=== PATIENT | female | born 1955 | race Two or more races ===

== ENCOUNTER 2017-02-20 15:17 | Emergency (ER) | payer OTHER ==
[~2017-02-20] VITALS: Ht 162.6 cm; Wt 89.4 kg
--- NOTE | 2017-02-20 15:27 | NUR ---
PRESENTS SELF TO ED FOR RIGHT SIDED CHEST PAIN X 1 WEEK,, 02/12, NON RADIATING. PATIENT APPEARS IN NO APPRENT DISTRESS, RESPIRATION EVEN AND UNLABORED. SKIN IS WARM TO TOUCH AND NON DIAPHORETIC. AFEBRILE. GOWNED AND PLACED PT ON TELE MONITOR, PENDING MD LORENZ
--- NOTE | 2017-02-20 15:35 | NUR ---
MD DELAROSA AT BEDSIDE
--- NOTE | 2017-02-20 15:54 | NUR ---
IV ACCESSED TO LEFT WRIST,, BLOOD SAMPLE SENT TO LAB
[2017-02-20 15:55] LABS: BASOPHILS # (AUTO) 0.1 /CMM (0.0-0.2); BASOPHILS % (AUTO) 1.2 % (0.0-2.0); EOSINOPHILS # (AUTO) 0.2 /CMM (0.0-0.7); HEMATOCRIT 44 % (33-45); HEMOGLOBIN 14.2 g/dL (11.5-14.8); LYMPHOCYTES # (AUTO) 2.7 /CMM (0.8-4.8); LYMPHOCYTES % (AUTO) 30.1 % (20.0-44.0); MEAN CORPUSCULAR HEMOGLOBIN 24 PG (26.0-33.0); MEAN CORPUSCULAR HGB CONC 32 g/dl (31.0-36.0); MEAN CORPUSCULAR VOLUME 75 fL (82-100); MONOCYTES # (AUTO) 0.9 /CMM (0.1-1.30); MONOCYTES % (AUTO) 9.8 % (2.0-12.0); NEUTROPHILS # (AUTO) 5.1 /CMM (1.8-8.9); NEUTROPHILS % (AUTO) 56.9 % (43.0-81.0); PLATELET COUNT (AUTO) 191 /CMM (150-450); RDW COEFFICIENT OF VARIATION 13.5 (11.5-15.0); RED BLOOD CELL COUNT(AUTO) 5.89 MIL/uL (4.0-5.2)
[2017-02-20] MEDS ORDERED: MORPHINE SULFATE INJ 2 MG/ML DISP.SYRIN IV ONE (16:00)
[2017-02-20] MEDS ORDERED: ASPIRIN 81 MG TAB.CHEW PO ONE (16:00)
[2017-02-20] MEDS ORDERED: MORPHINE SULFATE INJ 2 MG/ML DISP.SYRIN ONE (16:14)
[2017-02-20] MEDS ORDERED: ASPIRIN 81 MG TAB.CHEW ONE (16:14)
[2017-02-20 16:15] LABS: CARBON DIOXIDE 33 mmol/L (21-32); CHLORIDE 108 mmol/L (98-107); GLUCOSE 102 mg/dL (74-106); POTASSIUM 4.4 mmol/L (3.5-5.1); SODIUM SERUM 143 mmol/L (136-145); UREA NITROGEN, BLOOD 17 mg/dL (7-18)
[2017-02-20 16:18] LABS: INR 0.98 (0.87-1.13); PROTHROMBIN TIME 10.5 SECS (9.5-12.7)
[2017-02-20 16:24] LABS: TROPONIN I < 0.017 ng/mL (0.00-0.056)
[2017-02-20 16:31] LABS: ALBUMIN 3.5 g/dL (3.4-5.0); BILIRUBIN,DIRECT 0.1 mg/dL (0.0-0.2); BILIRUBIN,TOTAL 0.5 mg/dL (0.2-1.0); TOTAL PROTEIN, SERUM 7.7 g/dL (6.4-8.2)
[2017-02-20] MEDS ORDERED: IV NS 0.9% 250 ML IV ONE (17:17)
[2017-02-20] MEDS ORDERED: IOHEXOL-300 100 ML VIAL IV ONE (17:18)
--- NOTE | 2017-02-20 18:52 | NUR ---
IV removed. Catheter intact and site benign. Pressure and 4x4 applied to site. No bleeding noted. Patient discharged to home in stable condition. Written and verbal after care instructions given. Patient verbalizes understanding of instruction. ambulatory with a steady gait. instructed pt not to drive. pt accompanied by daughter.
[2017-02-20 18:54] VITALS: BP 132/84
== END 2017-02-20 18:55 | disposition home or self-care (01) ==
LOC: ER 15:19
DX: R07.9 Chest pain, unspecified (principal); E04.1 Nontoxic single thyroid nodule; E78.00 Pure hypercholesterolemia, unspecified; I10 Essential (primary) hypertension; F41.9 Anxiety disorder, unspecified
CPT/HCPCS: 36415; 71010; 71260; 80048; 80076; 84443; 84484 ×2; 85025; 85378; 85730; 93005 ×3; 96374; 99285; A4606; G0480; J2270; J7050; Q9967; Z7610

== ENCOUNTER 2018-01-05 13:03 | Emergency (ER) | payer OTHER ==
[~2018-01-05] VITALS: Ht 162.6 cm; Wt 86.2 kg
--- NOTE | 2018-01-05 13:07 | NUR ---
EPIGASTRIC PAIN RADIATING TO CHEST SINCE 2AM. PLACED ON MONITOR. AWAITING MD ORDER
[2018-01-05] MEDS ORDERED: ASPIRIN 81 MG TAB.CHEW PO ONE (13:30)
[2018-01-05] MEDS ORDERED: IV NS 0.9% 500 ML BAG IV ONE ×2 (13:30→15:30)
[2018-01-05] MEDS ORDERED: TRAZ150T75 PO (13:31)
[2018-01-05] MEDS ORDERED: ATOR10TA PO (13:31)
[2018-01-05] MEDS ORDERED: PROP40TA7 PO (13:31)
[2018-01-05] MEDS ORDERED: ASPI-1152 PO (13:31)
[2018-01-05] MEDS ORDERED: SERT100T12 PO (13:31)
[2018-01-05] MEDS ORDERED: ACET-53 PO (13:31)
[2018-01-05] MEDS ORDERED: LOSA25TA13 PO (13:31)
--- NOTE | 2018-01-05 13:38 | NUR ---
LAC #20 IV ACCESS. BLOOD SAMPLE COLLECTED SENT TO LAB
[2018-01-05] MEDS ORDERED: ASPIRIN 81 MG TAB.CHEW ONE (13:43)
[2018-01-05] MEDS ORDERED: MAG HYDROX/AL HYDROX/SIMETH 30 ML UDC ONE (13:43)
[2018-01-05] MEDS ORDERED: LIDOCAINE VISCOUS 2% UD 15 ML UDC ONE (13:43)
[2018-01-05] MEDS ORDERED: PANTOPRAZOLE 40 MG VIAL ONE (13:43)
[2018-01-05 13:58] LABS: BASOPHILS % (AUTO) 0.3 % (0.0-2.0); EOSINOPHILS % (AUTO) 0.2 % (0.0-6.0); HEMATOCRIT 46 % (33-45); HEMOGLOBIN 15.3 g/dL (11.5-14.8); LYMPHOCYTES # (AUTO) 2.3 /CMM (0.8-4.8); LYMPHOCYTES % (AUTO) 16.4 % (20.0-44.0); MEAN CORPUSCULAR HGB CONC 34 g/dl (31.0-36.0); MEAN CORPUSCULAR VOLUME 73 fL (82-100); MONOCYTES % (AUTO) 7.2 % (2.0-12.0); NEUTROPHILS # (AUTO) 10.7 /CMM (1.8-8.9); NEUTROPHILS % (AUTO) 75.9 % (43.0-81.0); PLATELET COUNT (AUTO) 237 /CMM (150-450); RDW COEFFICIENT OF VARIATION 14.2 (11.5-15.0); RED BLOOD CELL COUNT(AUTO) 6.21 MIL/uL (4.0-5.2); WHITE BLOOD COUNT (AUTO) 14.1 K/uL (4.3-11.0)
[2018-01-05] MEDS ORDERED: PANTOPRAZOLE 40 MG VIAL IV ONE (14:00)
[2018-01-05] MEDS ORDERED: LIDOCAINE VISCOUS 2% UD 15 ML UDC MM ONE (14:00)
[2018-01-05] MEDS ORDERED: MAG HYDROX/AL HYDROX/SIMETH 30 ML UDC PO ONE (14:00)
[2018-01-05] MEDS ORDERED: HYOSCYAMINE SULFATE 0.125 MG TAB.SUBL SL ONE (14:00)
[2018-01-05] MEDS ORDERED: HYOSCYAMINE SULFATE 0.125 MG TAB.SUBL SL PRN (14:00)
[2018-01-05 14:10] LABS: ALANINE AMINOTRANSFERASE 16 U/L (12-78); ALBUMIN 3.7 g/dL (3.4-5.0); ALKALINE PHOSPHATASE 98 U/L (46-116); ASPARTATE AMINOTRANSFERASE 25 U/L (15-37); BILIRUBIN,DIRECT 0.2 mg/dL (0.0-0.2); BILIRUBIN,TOTAL 0.8 mg/dL (0.2-1.0); CALCIUM, SERUM 9.8 mg/dL (8.5-10.1); CARBON DIOXIDE 29 mmol/L (21-32); CHLORIDE 101 mmol/L (98-107); CREATININE 0.9 mg/dL (0.6-1.3); GLUCOSE 128 mg/dL (74-106); POTASSIUM 4.1 mmol/L (3.5-5.1); SODIUM SERUM 138 mmol/L (136-145); TOTAL PROTEIN, SERUM 8.3 g/dL (6.4-8.2); TROPONIN I < 0.017 ng/mL (0.00-0.056); UREA NITROGEN, BLOOD 16 mg/dL (7-18)
--- NOTE | 2018-01-05 16:53 | NUR ---
IV removed. Catheter intact and site benign. Pressure and 4x4 applied to site. No bleeding noted. Patient discharged to home in stable condition. Written and verbal after care instructions given. Patient verbalizes understanding of instruction.
[2018-01-05 16:54] VITALS: BP 138/72
[2018-01-05 18:32] LABS: EOSINOPHILS % (MANUAL) 1 % (0-4); LYMPHOCYTES % (MANUAL) 22 % (16-48); MONOCYTES % (MANUAL) 4 % (0-11.0); NEUTROPHILS % (MANUAL) 73 (42-76)
== END 2018-01-05 16:55 | disposition home or self-care (01) ==
LOC: ER 13:07
DX: R07.89 Other chest pain (principal); K21.9 Gastro-esophageal reflux disease without esophagitis; E86.0 Dehydration; I10 Essential (primary) hypertension; R71.8 Other abnormality of red blood cells; D72.829 Elevated white blood cell count, unspecified; E78.00 Pure hypercholesterolemia, unspecified; F41.9 Anxiety disorder, unspecified
CPT/HCPCS: 36415; 71045-TC; 80048-TC; 80076-TC; 83690-TC; 84484-TC; 85025-TC; A4606; C9113; J7040; Z7610

== ENCOUNTER 2018-07-31 02:45 | Emergency (ER) | payer OTHER ==
[~2018-07-31] VITALS: Ht 170.2 cm; Wt 87.5 kg
[~2018-07-31 02:45] MED LIST: ACET-53 PO; ASPI-1152 PO; ATOR10TA PO; LOSA25TA27 PO; PROP40TA7 PO; SERT100T12 PO; TRAZ150T75 PO
--- NOTE | 2018-07-31 02:55 | NUR ---
PT BIB SON C/O EPIGASTRIC PAIN SINCE 2099. PT ON MONITOR IN BED 3. SON AT BEDSIDE. WILL CONTINUE TO MONITOR.
[2018-07-31 02:59] VITALS: BP 152/79
[2018-07-31] MEDS ORDERED: MAG HYDROX/AL HYDROX/SIMETH 30 ML UDC PO ONE (03:00)
[2018-07-31] MEDS ORDERED: LIDOCAINE VISCOUS 2% UD 15 ML UDC MM ONE (03:00)
[2018-07-31] MEDS ORDERED: MAG HYDROX/AL HYDROX/SIMETH 30 ML UDC ONE (03:02)
[2018-07-31] MEDS ORDERED: LIDOCAINE VISCOUS 2% UD 15 ML UDC ONE (03:02)
== END 2018-07-31 03:47 | disposition home or self-care (01) ==
LOC: ER 02:48
DX: K21.9 Gastro-esophageal reflux disease without esophagitis (principal); I10 Essential (primary) hypertension; E78.00 Pure hypercholesterolemia, unspecified; F41.9 Anxiety disorder, unspecified; Z79.82 Long term (current) use of aspirin
CPT/HCPCS: 93005; 99283; A4606; Z7610

== ENCOUNTER 2020-11-06 15:36 | Inpatient (IN) | payer OTHER, MEDICARE ==
[~2020-11-06] VITALS: Ht 152.4 cm; Wt 90.3 kg
[~2020-11-06 15:36] MED LIST changes: -ACET-53 PO; +ACET-54 PO; -ASPI-1152 PO; +ASPI-1420 PO; +SERT-439 PO; -SERT100T12 PO
--- NOTE | 2020-11-06 15:49 | NUR ---
THE PATIENT IS BIB DAUGHTER C/OEPIGASTRIC PAIN STARTED 4AM. PATIENT ALERT AND ORIENTED X4. RATES PAIN 10/10. IN ROOM AIR AND DENIES SOB. RESPIRATION REGULAR AND UNLABOED. NOTED RED SANDS ON PATIENT`S ABDOMEN AND BACK AND PER PATIENT SHE HAS BEEN PRACTICING "COINING WHICH IS CULTURAL PRACTICE TO MANAGE PAIN." PATIENT IS PROVIDED WITH A WARM BLANKET. WILL CONTINUE TO MONITOR.
[2020-11-06] MEDS ORDERED: PANTOPRAZOLE 40 MG VIAL ONE (16:49)
[2020-11-06] MEDS ORDERED: MAG HYDROX/AL HYDROX/SIMETH 30 ML UDC ONE (16:50)
[2020-11-06] MEDS ORDERED: LIDOCAINE VISCOUS 2% UD 15 ML UDC ONE (16:50)
[2020-11-06] MEDS ORDERED: FAMOTIDINE/PF INJ 20 MG/2 ML VIAL IV ONE ×2 (16:50→17:00)
[2020-11-06] MEDS ORDERED: MAG HYDROX/AL HYDROX/SIMETH 30 ML UDC PO ONE (17:00)
[2020-11-06] MEDS ORDERED: PANTOPRAZOLE 40 MG VIAL IV ONE (17:00)
[2020-11-06] MEDS ORDERED: LIDOCAINE VISCOUS 2% UD 15 ML UDC MM ONE (17:00)
[2020-11-06 17:27] LABS: BASOPHILS # (AUTO) 0.2 /CMM (0.0-0.2); BASOPHILS % (AUTO) 1.5 % (0.0-2.0); EOSINOPHILS % (AUTO) 0.5 % (0.0-6.0); HEMATOCRIT 43 % (33-45); LYMPHOCYTES # (AUTO) 1.4 /CMM (0.8-4.8); LYMPHOCYTES % (AUTO) 10.3 % (20.0-44.0); MEAN CORPUSCULAR HGB CONC 33 g/dl (31.0-36.0); MEAN CORPUSCULAR VOLUME 75 fL (82-100); MONOCYTES # (AUTO) 0.8 /CMM (0.1-1.30); MONOCYTES % (AUTO) 6.1 % (2.0-12.0); NEUTROPHILS # (AUTO) 11.2 /CMM (1.8-8.9); NEUTROPHILS % (AUTO) 81.6 % (43.0-81.0); PLATELET COUNT (AUTO) 208 /CMM (150-450); RED BLOOD CELL COUNT(AUTO) 5.73 MIL/uL (4.0-5.2); WHITE BLOOD COUNT (AUTO) 13.7 K/uL (4.3-11.0)
--- NOTE | 2020-11-06 17:43 | NUR ---
MORPHINE 2 MG IV X1 ORDERED BY DR TRIPATHI. THE ORDER READ BACK, VERIFIED. NOTED AND CARRIED OUT.
[2020-11-06 17:48] LABS: EOSINOPHILS % (MANUAL) 1 % (0-4); LYMPHOCYTES % (MANUAL) 10 % (16-48); MONOCYTES % (MANUAL) 7 % (0-11.0); NEUTROPHILS % (MANUAL) 82 (42-76)
[2020-11-06] MEDS ORDERED: MORPHINE SULFATE INJ 2 MG/ML DISP.SYRIN ONE ×2 (17:50→20:53)
[2020-11-06 17:54] LABS: CALCIUM, SERUM 9.4 mg/dL (8.5-10.1); CARBON DIOXIDE 27 mmol/L (21-32); CHLORIDE 104 mmol/L (98-107); CREATININE 0.8 mg/dL (0.6-1.3); GLUCOSE 112 mg/dL (74-106); SODIUM SERUM 141 mmol/L (136-145); UREA NITROGEN, BLOOD 15 mg/dL (7-18)
[2020-11-06] MEDS ORDERED: MORPHINE SULFATE INJ 2 MG/ML DISP.SYRIN IV ONE ×2 (18:00→21:00)
[2020-11-06 18:01] LABS: ALANINE AMINOTRANSFERASE 25 U/L (12-78); ALBUMIN 3.6 g/dL (3.4-5.0); ALKALINE PHOSPHATASE 83 U/L (46-116); ASPARTATE AMINOTRANSFERASE 40 U/L (15-37); BILIRUBIN,DIRECT 0.2 mg/dL (0.0-0.2); BILIRUBIN,TOTAL 0.6 mg/dL (0.2-1.0); LIPASE 51 U/L (73-393); TOTAL PROTEIN, SERUM 7.7 g/dL (6.4-8.2)
[2020-11-06] MEDS ORDERED: IV NS 0.9% 250 ML IV ONE (18:05)
[2020-11-06] MEDS ORDERED: IOHEXOL-300 100 ML VIAL IV ONE (18:05)
[2020-11-06] MEDS ORDERED: CT SWABBABLE VALVE TRANS SET 1 EA INFUS.SET MC ONE (18:05)
--- NOTE | 2020-11-06 18:42 | NUR ---
PATIENT GETTING ULTRASOUND.
--- NOTE | 2020-11-06 20:45 | NUR ---
PATIENT REPORTS NO MED TAKEN Addendum: 11/06/20 at 2213 by CLARA AT HOME
--- NOTE | 2020-11-06 20:49 | NUR ---
AMBULATED TO THE RESTROOM WITH A STEADY GAIT.
--- NOTE | 2020-11-06 20:52 | NUR ---
CALL FROM LAB. RAPID COVID NEGATIVE.
[2020-11-06] MEDS ORDERED: ONDANSETRON HCL/PF 4 MG/2 ML VIAL ONE (21:02)
[2020-11-06] MEDS ORDERED: ONDANSETRON HCL/PF 4 MG/2 ML VIAL IV ONE (21:30)
--- NOTE | 2020-11-06 21:32 | NUR ---
RECIEVED BED 324-2
--- NOTE | 2020-11-06 21:32 | NUR ---
BED ASSIGNMENT 324-2
--- NOTE | 2020-11-06 21:42 | NUR ---
REPORT GIVEN TO SILVESTRE GUTIERREZ FOR THERESA.
[2020-11-06 22:00] VITALS: BP 138/75
--- NOTE | 2020-11-06 22:00 | NUR ---
MS ADMISSION NOTE RECEIVED REPORT FROM BRENDA CARRENO FROM ER [id number]. PATIENT ADMITTED IN ROOM 324-2. PATIENT A/O X 4. COMPLAINED OF ABDOMINAL PAIN 5/10. SKIN INTACT. PATIENT ORIENTED TO ROOM, UNIT, PRIMARY NURSE, AND ADMINISTRATIVE ANALYST. VITALS SIGNS STABLE UPON ARRIVAL. RFA 20 g INTACT AND PATENT. PATIENT AMBULATORY. SAFETY PRECAUTIONS IN PLACE. CALL LIGHT WITHIN REACH. WILL MONITOR PATIENT CLOSELY.
[2020-11-06] MEDS ORDERED: ONDANSETRON HCL/PF 4 MG/2 ML VIAL IVP PRN (23:00)
[2020-11-06] MEDS ORDERED: IV NS 0.9% 1,000 ML IV PRN (23:00)
[2020-11-06] MEDS ORDERED: Z GUARD REMEDY 2 OZ OINT TP PRN (23:00)
[2020-11-06] MEDS ORDERED: PIPERACILLIN /TAZOBACTAM 3.375 G VIAL IV ONE (23:08)
[2020-11-06] MEDS: PIPERACILLIN /TAZOBACTAM 3.375 G in IV D5W 50 ML IV SCH (23:16)
[2020-11-07] MEDS ORDERED: PIPERACILLIN /TAZOBACTAM 3.375 G in IV D5W 50 ML IV SCH
--- NOTE | 2020-11-07 00:45 | NUR ---
MS RN NOTE MORPHINE 2 MG GIVEN TO PATIENT FOR 8/10 ABDOMINAL PAIN.
[2020-11-07] MEDS: MORPHINE SULFATE INJ 2 MG/ML DISP.SYRIN IV PRN ×3 (00:51→09:25)
[2020-11-07] MEDS ORDERED: PIPERACILLIN /TAZOBACTAM 3.375 G VIAL IV ONE (05:28)
[2020-11-07] MEDS: PIPERACILLIN /TAZOBACTAM 3.375 G in IV D5W 50 ML IV SCH (05:34)
--- NOTE | 2020-11-07 05:49 | NUR ---
MS RN NOTE MORPHINE 2 MG IV GIVEN TO PATIENT FOR HER ABDOMINAL PAIN.
[2020-11-07 06:08] LABS: BASOPHILS # (AUTO) 0.1 /CMM (0.0-0.2); BASOPHILS % (AUTO) 0.4 % (0.0-2.0); EOSINOPHILS % (AUTO) 0.1 % (0.0-6.0); HEMATOCRIT 44 % (33-45); LYMPHOCYTES # (AUTO) 1.2 /CMM (0.8-4.8); LYMPHOCYTES % (AUTO) 7.1 % (20.0-44.0); MEAN CORPUSCULAR HGB CONC 32 g/dl (31.0-36.0); MEAN CORPUSCULAR VOLUME 76 fL (82-100); MONOCYTES # (AUTO) 1.8 /CMM (0.1-1.30); MONOCYTES % (AUTO) 10.9 % (2.0-12.0); NEUTROPHILS # (AUTO) 13.6 /CMM (1.8-8.9); NEUTROPHILS % (AUTO) 81.5 % (43.0-81.0); PLATELET COUNT (AUTO) 201 /CMM (150-450); RED BLOOD CELL COUNT(AUTO) 5.73 MIL/uL (4.0-5.2); WHITE BLOOD COUNT (AUTO) 16.7 K/uL (4.3-11.0)
[2020-11-07 06:33] LABS: THYROID STIMULATING HORMONE 0.246 uIU/mL (0.358-3.74)
[2020-11-07 06:38] LABS: ALBUMIN 3.3 g/dL (3.4-5.0); BILIRUBIN,TOTAL 1.1 mg/dL (0.2-1.0); CALCIUM, SERUM 8.5 mg/dL (8.5-10.1); CREATININE 0.8 mg/dL (0.6-1.3); MAGNESIUM 1.6 mg/dL (1.8-2.4); PHOSPHORUS 2.9 mg/dL (2.5-4.9); POTASSIUM 3.9 mmol/L (3.5-5.1); TOTAL PROTEIN, SERUM 7.7 g/dL (6.4-8.2)
--- NOTE | 2020-11-07 07:00 | NUR ---
MS RN CLOSING NOTE PATIENT IN BED RESTING, EASILY AROUSABLE. PATIENT STABLE AT THIS TIME. NO S/S OF ANY DISTRESS AT THIS TIME. PAIN MANAGED DURING THE SHIFT. ATB THERAPY STILL INFUSING. IV SITE INTACT AND PATENT. ALL NEEDS MET AND ATTENDED. SAFETY PRECAUTIONS MAINTAINED. WILL ENDORSE TO DAY SHIFT NURSE FOR THERESA.
--- NOTE | 2020-11-07 07:27 | NUR ---
MS RN OPENING NOTES: RECEIVED PATIENT LYING IN BED, AWAKE. A/O X 4. NO PAIN OR RESPIRATORY DISTRESS NOTED. BREATHING IS EVEN AND NON-LABORED. RIGHT FOREARM IV #20 INTACT AND PATENT - RUNNING NS @ 75ML/HR. PATIENT AMBULATORY. SAFETY PRECAUTIONS IN PLACE. CALL LIGHT WITHIN REACH. WILL CONTINUE TO MONITOR.
[2020-11-07 08:00] VITALS: BP 143/74
[2020-11-07] MEDS: ASPIRIN EC 81 MG TABLET.DR PO SCH (08:17)
[2020-11-07] MEDS: SERTRALINE HCL 50 MG TABLET PO SCH (08:17)
[2020-11-07] MEDS: PANTOPRAZOLE 40 MG VIAL IV SCH (08:18)
[2020-11-07] MEDS: ENOXAPARIN SODIUM 40 MG/0.4 ML DISP.SYRIN SQ SCH (08:21)
[2020-11-07] MEDS: PROPRANOLOL HCL 40 MG TABLET PO SCH ×2 (08:25→21:00)
[2020-11-07] MEDS: LOSARTAN POTASSIUM 25 MG TABLET PO SCH (08:25)
--- NOTE | 2020-11-07 08:39 | NUR ---
MS RN NOTE NOTED RED SANDS ON PATIENT'S ABDOMEN - PATIENT PRACTICES CULTURAL TRADITION OF COINING. COINING IS DONE WITH THE INTENTION OF RIDDING THE BODY OF "NEGATIVE ENERGY". IT IS DONE BY USING A HARD OBJECT WITH A SMOOTH EDGE (LIKE A COIN) AND RUBBING IT DOWN THE SKIN LINEARLY UNTIL A BRUISE APPEARS.
[2020-11-07] MEDS: Magnesium 1GM/D5W 100ML PREMIX 100 ML IV SCH ×2 (11:09→12:12)
[2020-11-07] MEDS: PIPERACILLIN /TAZOBACTAM 3.375 G in IV D5W 100 ML IV SCH ×2 (13:23→21:03)
[2020-11-07 16:00] VITALS: BP 122/71
[2020-11-07] MEDS ORDERED: PROCHLORPERAZINE EDISYLATE 10 MG/2 ML VIAL IVP PRN (16:00)
--- NOTE | 2020-11-07 18:21 | NUR ---
MS RN CLOSING NOTES: PATIENT IS LYING IN BED, RESTING AT THIS TIME. NO PAIN OR RESPIRATORY DISTRESS NOTED. BREATHING IS EVEN AND NON-LABORED. RIGHT FOREARM IV #20 INTACT AND PATENT - RUNNING NS @ 100ML/HR. PATIENT HAS BEEN NAUSEOUS OFF AND ON THROUGHOUT SHIFT - COMPAZINE 10MG ORDERED ([facility] FROM [facility]) IVP Q6 PRN. GIVEN @ 1637. SAFETY PRECAUTIONS IN PLACE. CALL LIGHT WITHIN REACH. WILL ENDORSE TO SQUEEGEE FINISHER NURSE FOR THERESA.
--- NOTE | 2020-11-07 19:30 | NUR ---
MS RN OPENING NOTE PATIENT RESTING IN BED, AROUSED EASILY, A/O X4. PATIENT ABLE TO MAKE NEEDS KNOWN. PATIENT ABLE TO AMBULATE/ BRP. NO S/S OF RESPIRATORY DISTRESS, C/O OF PAIN/DISCOMFORT, NAUSEA/VOMITING AT THIS TIME. IV ACCESS PATENT AND INTACT, IV FLUIDS INFUSING. PATIENT TOLERATING ROOM AIR. SAFETY PRECAUTIONS IN PLACE: SIDE RAILS UP, BED IN LOCKED AND LOWEST POSITION, CALL LIGHT WITHIN REACH. ENCOURAGED PATIENT TO USE CALL LIGHT IF IN NEED. WILL CONTINUE TO MONITOR THROUGHOUT THE SHIFT.
[2020-11-07] MEDS: IV NS 0.9% 1,000 ML IV PRN (19:33)
[2020-11-07 20:00] VITALS: BP 108/53
[2020-11-07] MEDS: ATORVASTATIN 10 MG TABLET PO SCH (22:21)
[2020-11-07] MEDS: TRAZODONE 50 MG TABLET PO SCH (22:21)
[2020-11-08] MEDS: PIPERACILLIN /TAZOBACTAM 3.375 G in IV D5W 100 ML IV SCH ×3 (05:03→20:10)
--- NOTE | 2020-11-08 06:42 | NUR ---
MS RN CLOSING NOTE PATIENT RESTING IN BED, AROUSED EASILY, A/O X4. PATIENT ABLE TO MAKE NEEDS KNOWN. NO S/S OF RESPIRATORY DISTRESS, C/O OF PAIN/DISCOMFORT, NAUSEA/VOMITING AT THIS TIME. IV ACCESS PATENT AND INTACT, NS @ 100 ML/HR INFUSING WELL. PATIENT TOLERATING ROOM AIR. ROUTINE AND PRN MEDS GIVEN, ATB THERAPY CARRIED OUT. SAFETY PRECAUTIONS MAINTAINED THROUGHOUT THE SHIFT. ALL NEEDS MET AND ATTENDED. WILL ENDORSE TO DAY SHIFT NURSE.
--- NOTE | 2020-11-08 07:39 | NUR ---
MS RN OPENING NOTES: RECEIVED PATIENT LYING IN BED, AWAKE. A/O X 4. NO PAIN OR RESPIRATORY DISTRESS NOTED. BREATHING IS EVEN AND NON-LABORED. RIGHT FOREARM IV #20 INTACT AND PATENT - RUNNING NS @ 100ML/HR. PATIENT AMBULATORY. SAFETY PRECAUTIONS IN PLACE. CALL LIGHT WITHIN REACH. WILL CONTINUE TO MONITOR.
[2020-11-08 07:41] LABS: CALCIUM, SERUM 8.3 mg/dL (8.5-10.1); MAGNESIUM 2.5 mg/dL (1.8-2.4)
[2020-11-08 08:00] VITALS: BP 117/58
[2020-11-08] MEDS: PANTOPRAZOLE 40 MG VIAL IV SCH (08:02)
[2020-11-08] MEDS: ASPIRIN EC 81 MG TABLET.DR PO SCH (08:02)
[2020-11-08] MEDS: SERTRALINE HCL 50 MG TABLET PO SCH (08:02)
[2020-11-08] MEDS: PROPRANOLOL HCL 40 MG TABLET PO SCH ×2 (08:03→20:09)
[2020-11-08] MEDS: LOSARTAN POTASSIUM 25 MG TABLET PO SCH (08:03)
[2020-11-08] MEDS: ENOXAPARIN SODIUM 40 MG/0.4 ML DISP.SYRIN SQ SCH (08:05)
[2020-11-08 09:27] LABS: BASOPHILS % (AUTO) 0.2 % (0.0-2.0); EOSINOPHILS % (AUTO) 0.2 % (0.0-6.0); HEMATOCRIT 40 % (33-45); HEMOGLOBIN 12.8 g/dL (11.5-14.8); LYMPHOCYTES % (AUTO) 9.4 % (20.0-44.0); MEAN CORPUSCULAR HGB CONC 32 g/dl (31.0-36.0); MEAN CORPUSCULAR VOLUME 75 fL (82-100); MONOCYTES # (AUTO) 2.1 /CMM (0.1-1.30); MONOCYTES % (AUTO) 10.1 % (2.0-12.0); NEUTROPHILS # (AUTO) 16.6 /CMM (1.8-8.9); NEUTROPHILS % (AUTO) 80.1 % (43.0-81.0); PLATELET COUNT (AUTO) 199 /CMM (150-450); RED BLOOD CELL COUNT(AUTO) 5.25 MIL/uL (4.0-5.2); WHITE BLOOD COUNT (AUTO) 20.7 K/uL (4.3-11.0)
--- NOTE | 2020-11-08 13:03 | NUR ---
MS RN NOTE PATIENT TAKEN DOWN FOR HIDA SCAN.
[2020-11-08 15:28] LABS: BILIRUBIN,URINE SMALL (NEGATIVE); COLOR,URINE YELLOW (YELLOW); LEUKOCYTE ESTERASE ,URINE SMALL (NEGATIVE); NITRITE, URINE NEGATIVE (NEGATIVE); PROTEIN,URINE TRACE mg/dl (NEGATIVE); UGLUCOSE NEGATIVE (NEGATIVE); UROBILINOGEN,URINE 0.2 EU/dL (0.2)
--- NOTE | 2020-11-08 15:30 | NUR ---
MS RN NOTE PATIENT BACK FROM HIDA SCAN
[2020-11-08 15:41] LABS: BACTERIA,URINE 1+ /HPF (None Seen); RBC,URINE 21-50 /HPF (0-2); SQUAMOUS EPITHELIAL CELL,UR Many /HPF (None Seen); WBC,URINE TOO NUMEROUS TO COUN /HPF (0-3)
[2020-11-08 16:00] VITALS: BP 103/54
--- NOTE | 2020-11-08 16:54 | NUR ---
MS RN NOTE PATIENT LEFT FOR SECOND PART OF HIDA SCAN.
--- NOTE | 2020-11-08 17:20 | NUR ---
MS RN NOTE PATIENT RETURNED FROM HIDA SCAN.
--- NOTE | 2020-11-08 18:31 | NUR ---
MS RN CLOSING NOTE PATIENT RESTING IN BED, AROUSED EASILY, A/O X4. NO PAIN OR RESPIRATORY DISTRESS NOTED. NO DISCOMFORT NOTED. NO NAUSEA/VOMITING AT THIS TIME. IV ACCESS ON RIGHT HAND PATENT AND INTACT - RUNNING NS @ 100 ML/HR. PATIENT TOLERATING ROOM AIR PATIENT HAD HIDA SCAN - RESULTED NEGATIVE. SAFETY PRECAUTIONS IN PLACE. WILL ENDORSE TO FORESTRY AID NURSE FOR THERESA.
[2020-11-08 19:00] VITALS: BP 105/51
[2020-11-08] MEDS: ACETAMINOPHEN 325 MG TABLET PO PRN (20:10)
[2020-11-08] MEDS: IV NS 0.9% 1,000 ML IV PRN (20:11)
[2020-11-08] MEDS: ATORVASTATIN 10 MG TABLET PO SCH (21:45)
[2020-11-08] MEDS: TRAZODONE 50 MG TABLET PO SCH (21:45)
[2020-11-09] VITALS (8 sets, daily range): BP systolic 97–134; BP diastolic 53–65
[2020-11-09] MEDS: PIPERACILLIN /TAZOBACTAM 3.375 G in IV D5W 100 ML IV SCH ×3 (04:40→21:58)
[2020-11-09] MEDS: ACETAMINOPHEN 325 MG TABLET PO PRN (07:31)
--- NOTE | 2020-11-09 08:35 | NUR ---
WOUND CARE CONSULT: PT PRESENTS WITH FADING REDNESS TO BACK AND ABDOMEN, PRESENT ON ADMISSION. PT STATES HAS BEEN USING COINING (CULTURAL TECHNIQUE FOR PAIN MANAGEMENT) AT HOME. NO OPEN WOUNDS NOTED. PT IS INDEPENDENT WITH BED MOBILITY AND IS CONTINENT. WILL SEE PRN.
[2020-11-09] MEDS: ASPIRIN EC 81 MG TABLET.DR PO SCH (08:49)
[2020-11-09] MEDS: LOSARTAN POTASSIUM 25 MG TABLET PO SCH (08:50)
[2020-11-09] MEDS: SERTRALINE HCL 50 MG TABLET PO SCH (08:50)
[2020-11-09] MEDS: PROPRANOLOL HCL 40 MG TABLET PO SCH ×3 (08:50→22:30)
[2020-11-09] MEDS: PANTOPRAZOLE 40 MG VIAL IV SCH (08:51)
[2020-11-09] MEDS: ENOXAPARIN SODIUM 40 MG/0.4 ML DISP.SYRIN SQ SCH (08:51)
[2020-11-09] MEDS: IV NS 0.9% 1,000 ML IV PRN ×2 (11:45→22:06)
[2020-11-09 11:54] LABS: BASOPHILS % (AUTO) 0.2 % (0.0-2.0); EOSINOPHILS % (AUTO) 0.9 % (0.0-6.0); HEMATOCRIT 39 % (33-45); HEMOGLOBIN 12.5 g/dL (11.5-14.8); LYMPHOCYTES # (AUTO) 1.3 /CMM (0.8-4.8); LYMPHOCYTES % (AUTO) 9.5 % (20.0-44.0); MEAN CORPUSCULAR HGB CONC 32 g/dl (31.0-36.0); MEAN CORPUSCULAR VOLUME 76 fL (82-100); MONOCYTES # (AUTO) 1.3 /CMM (0.1-1.30); MONOCYTES % (AUTO) 9.1 % (2.0-12.0); NEUTROPHILS # (AUTO) 11.1 /CMM (1.8-8.9); NEUTROPHILS % (AUTO) 80.3 % (43.0-81.0); PLATELET COUNT (AUTO) 225 /CMM (150-450); WHITE BLOOD COUNT (AUTO) 13.9 K/uL (4.3-11.0)
[2020-11-09 12:23] LABS: CALCIUM, SERUM 8.1 mg/dL (8.5-10.1); CREATININE 1.1 mg/dL (0.6-1.3); MAGNESIUM 2.5 mg/dL (1.8-2.4); PHOSPHORUS 2.8 mg/dL (2.5-4.9); POTASSIUM 4.2 mmol/L (3.5-5.1)
[2020-11-09] MEDS: MORPHINE SULFATE INJ 2 MG/ML DISP.SYRIN IV PRN (13:00)
[2020-11-09] MEDS ORDERED: IOHEXOL 240MG/ML 0 ML IV ONE (17:54)
[2020-11-09] MEDS ORDERED: LIDOCAINE HCL/PF 1% 30 ML SDV ONE (17:55)
[2020-11-09] MEDS ORDERED: ANESTHESIA TRAY IN PYXIS 1 EA TRAY MC ONE (17:55)
[2020-11-09] MEDS ORDERED: BUPIVACAINE MPF 0.5% W/EPI INJ 30 ML VIAL ONE (17:55)
--- NOTE | 2020-11-09 18:20 | NUR ---
MS RN NOTE PATIENT TAKEN TO OR FOR SURGERY.
--- NOTE | 2020-11-09 18:30 | NUR ---
MS RN CLOSING NOTE PATIENT CURRENTLY IN OR FOR SURGERY. WILL ENDORSE TO SILO FILLER NURSE FOR THERESA.
[2020-11-09] MEDS ORDERED: FENTANYL PF 100MCG/2ML AMPUL ONE (18:33)
[2020-11-09] MEDS ORDERED: MIDAZOLAM HCL 2 MG/2ML VIAL ONE (18:34)
[2020-11-09] MEDS ORDERED: ROCURONIUM BROMIDE 50 MG/5 ML ONE (18:34)
[2020-11-09] MEDS ORDERED: SUCCINYLCHOLINE CHLORIDE 20 MG/ML VIAL ONE (18:34)
--- NOTE | 2020-11-09 21:40 | NUR ---
POST OP RETURNED TO UNIT RM 324 BED 2. REPORT RECIEVED FROM HARRIETT GUTIERREZ. PATIENT IN STABLE CONDITION VS WNL. ON 2LNC. NEW POST OP ORDERS RECIEVED FROM MARINO. PER REPORT HAD SUCCESS LAP CHOLECYSTECTOMY WITH LIVER BIOPSY. PT DENIES NAUSEA REPORTS MILD PAIN TO ABD. HAS 3 PUNTURE SITES TO ABD WITH STERISTRIPS AND RLQ ANEESH DRAIN COVERED WITH GAUZE AND TEGADERM. POST OP VITAL SIGNS INITIATED. WILL CONT TO MONITOR.
[2020-11-09] MEDS: ATORVASTATIN 10 MG TABLET PO SCH (22:06)
[2020-11-09] MEDS: TRAZODONE 50 MG TABLET PO SCH (22:06)
--- NOTE | 2020-11-09 22:15 | NUR ---
POST OP ORDER CLARIFICATION MEDICATIONS SPOKE WITH ANDONIAN O AND M SUPERVISOR FOR [facility]; TO CLARIFY POST OP ORDERS FOR MEDICATOINS. PT ON CLEAR LIQUIDS, DENIES NAUSEA. MARINO DIDN'T SPECIFY MEDICATIONS TO CONTINUE. NEW ORDERS TO CONTINUE POST OP MEDICATIONS AND DISCONTINUE IVF WHEN TOLERATING PO INTAKE RECIEVED.
--- NOTE | 2020-11-09 22:30 | NUR ---
incentive spirometer given to patient, instructed on its use. able to return demonstration with device. will encouragee its use. per protocol .
[2020-11-10] VITALS: BP 92/54
[2020-11-10 04:00] VITALS: BP 133/64
[2020-11-10] MEDS: PIPERACILLIN /TAZOBACTAM 3.375 G in IV D5W 100 ML IV SCH ×3 (04:38→21:34)
[2020-11-10] MEDS: MORPHINE SULFATE INJ 2 MG/ML DISP.SYRIN IV PRN ×2 (04:50→04:51)
--- NOTE | 2020-11-10 05:19 | NUR ---
PT OOB. USED BSC WITH ASSIST. PT DENIES SOB 2LNC REMOVED PATIENT PLACED ON ROOM AIR. ANEESH DRAIN EMPTIED HAD 20 ML OF SEROSUANGUINOUS FLUID. PATIENT ASSISTED BACK TO BED. PATIENT TOLERATED ACTIVITY FAIRLY. Addendum: 11/10/20 at 0532 by ARMINDA EARL RN PATIENT SATURATING 94% ON RA DENIES SOB.
[2020-11-10 06:44] LABS: BASOPHILS % (AUTO) 0.3 % (0.0-2.0); EOSINOPHILS % (AUTO) 0.4 % (0.0-6.0); HEMATOCRIT 36 % (33-45); HEMOGLOBIN 11.7 g/dL (11.5-14.8); LYMPHOCYTES # (AUTO) 1.2 /CMM (0.8-4.8); LYMPHOCYTES % (AUTO) 8.9 % (20.0-44.0); MEAN CORPUSCULAR HGB CONC 32 g/dl (31.0-36.0); MEAN CORPUSCULAR VOLUME 76 fL (82-100); MONOCYTES # (AUTO) 1.7 /CMM (0.1-1.30); MONOCYTES % (AUTO) 12.9 % (2.0-12.0); NEUTROPHILS # (AUTO) 10.4 /CMM (1.8-8.9); NEUTROPHILS % (AUTO) 77.5 % (43.0-81.0); PLATELET COUNT (AUTO) 229 /CMM (150-450); RED BLOOD CELL COUNT(AUTO) 4.75 MIL/uL (4.0-5.2); WHITE BLOOD COUNT (AUTO) 13.4 K/uL (4.3-11.0)
[2020-11-10 07:14] LABS: CALCIUM, SERUM 7.8 mg/dL (8.5-10.1); CREATININE 0.9 mg/dL (0.6-1.3); MAGNESIUM 2.3 mg/dL (1.8-2.4); PHOSPHORUS 3.2 mg/dL (2.5-4.9)
--- NOTE | 2020-11-10 07:25 | NUR ---
MS OPENING NOTE PATIENT RESTING IN BED, ALERT & ORIENTED X 4. NO ACUTE DISTRESS OR SHORTNESS OF BREATH NOTED. NO PAIN REPORTED AT THIS TIME. SAFETY MEASURES IN PLACE, BED IN LOWEST POSITION, CALL LIGHT WITHIN REACH AND BED ALARM ON. WILL CONTINUE TO MONITOR
[2020-11-10 08:00] VITALS: BP 117/55
[2020-11-10] MEDS: SERTRALINE HCL 50 MG TABLET PO SCH (09:36)
[2020-11-10] MEDS: PROPRANOLOL HCL 40 MG TABLET PO SCH ×2 (09:36→21:49)
[2020-11-10] MEDS: LOSARTAN POTASSIUM 25 MG TABLET PO SCH (09:37)
[2020-11-10] MEDS: PANTOPRAZOLE 40 MG VIAL IV SCH (09:37)
[2020-11-10] MEDS: ASPIRIN EC 81 MG TABLET.DR PO SCH (09:37)
[2020-11-10] MEDS: ENOXAPARIN SODIUM 40 MG/0.4 ML DISP.SYRIN SQ SCH (09:39)
[2020-11-10] MEDS: ACETAMINOPHEN 325 MG TABLET PO PRN ×2 (09:48→17:16)
[2020-11-10] MEDS ORDERED: HYDROCODONE/APAP 5/325MG TABLET PO PRN (12:30)
[2020-11-10] MEDS: DOCUSATE SODIUM 250 MG CAPSULE PO SCH (13:01)
[2020-11-10 16:00] VITALS: BP 126/70
--- NOTE | 2020-11-10 19:00 | NUR ---
MS CLOSING NOTE PATIENT RESTING IN BED, ALERT AND ORIENTED X 4. NO ACUTE DISTRESS OR SHORTNESS OF BREATH NOTED. ANEESH DRAIN OUTPUT 30 ML SEROSANGUINEOUS. SAFETY MEASURES IN PLACE, BED IN LOWEST POSITION, CALL LIGHT WITHIN REACH AND BED ALARM ON. WILL ENDORSE TO BOAT CANVAS MAKER INSTALLER NURSE FOR CONTINUITY OF CARE.
--- NOTE | 2020-11-10 20:22 | NUR ---
ms drake initial notes received report from am nurse and seen patient in bed awake and alert watching TV at this time. not in any acute distress or any discomfort noted at this time. re-oriented how to used the call light system and encourage her to call if she needs some help or needs assistance. Kept her warm and comfortable at all times. will continue monitoring. Place call light at reach.
[2020-11-10] MEDS: ATORVASTATIN 10 MG TABLET PO SCH (21:50)
[2020-11-10] MEDS: TRAZODONE 50 MG TABLET PO SCH (22:44)
[2020-11-11] MEDS: ACETAMINOPHEN 325 MG TABLET PO PRN ×2 (01:42→09:09)
[2020-11-11] MEDS: PIPERACILLIN /TAZOBACTAM 3.375 G in IV D5W 100 ML IV SCH ×2 (06:00→13:33)
[2020-11-11 06:43] LABS: BASOPHILS % (AUTO) 0.1 % (0.0-2.0); EOSINOPHILS % (AUTO) 0.8 % (0.0-6.0); HEMATOCRIT 36 % (33-45); HEMOGLOBIN 11.7 g/dL (11.5-14.8); LYMPHOCYTES # (AUTO) 1.6 /CMM (0.8-4.8); LYMPHOCYTES % (AUTO) 12.2 % (20.0-44.0); MEAN CORPUSCULAR HGB CONC 32 g/dl (31.0-36.0); MEAN CORPUSCULAR VOLUME 75 fL (82-100); MONOCYTES # (AUTO) 1.7 /CMM (0.1-1.30); MONOCYTES % (AUTO) 12.7 % (2.0-12.0); NEUTROPHILS # (AUTO) 9.7 /CMM (1.8-8.9); NEUTROPHILS % (AUTO) 74.2 % (43.0-81.0); PLATELET COUNT (AUTO) 251 /CMM (150-450); RED BLOOD CELL COUNT(AUTO) 4.82 MIL/uL (4.0-5.2); WHITE BLOOD COUNT (AUTO) 13.1 K/uL (4.3-11.0)
--- NOTE | 2020-11-11 07:02 | NUR ---
MS STONECUTTER APPRENTICE HAND CLOSING NOTES PT back to sleep and stable throughout the night . kept her warm and comfortable at all times. all due medication given and all needs met. kept her warm and comfortable at all times. surgical site still dry and intact and 5 ml output noted on her ANEESH .Encourage her to ambulate as tolerated . will endorse to am nurse for continuity of care. place call light at reach.
[2020-11-11 07:16] LABS: CALCIUM, SERUM 8.2 mg/dL (8.5-10.1); CREATININE 0.9 mg/dL (0.6-1.3); MAGNESIUM 2.3 mg/dL (1.8-2.4); PHOSPHORUS 2.3 mg/dL (2.5-4.9); POTASSIUM 3.7 mmol/L (3.5-5.1)
[2020-11-11] MEDS ORDERED: PANTOPRAZOLE 40 MG TABLET.DR PO SCH (07:30)
--- NOTE | 2020-11-11 07:30 | NUR ---
MS OPENING NOTE PATIENT SLEEPING IN BED, EASILY AWAKENED, ALERT & ORIENTED X 4. NO ACUTE DISTRESS OR SHORTNESS OF BREATH NOTED. BREATHING EVEN AND UNLABORED. NO PAIN REPORTED AT THIS TIME. SAFETY MEASURES IN PLACE, BED LOCKED IN LOWEST POSITION, CALL LIGHT WITHIN REACH AND BED ALARM ON. WILL CONTINUE TO MONITOR
[2020-11-11] MEDS ORDERED: TRAM50TA2 PO (08:47)
[2020-11-11] MEDS ORDERED: METR500T PO (08:47)
[2020-11-11] MEDS ORDERED: CIPR-262 PO (08:47)
[2020-11-11] MEDS: DOCUSATE SODIUM 250 MG CAPSULE PO SCH (09:06)
[2020-11-11] MEDS: ASPIRIN EC 81 MG TABLET.DR PO SCH (09:06)
[2020-11-11] MEDS: SERTRALINE HCL 50 MG TABLET PO SCH (09:06)
[2020-11-11] MEDS: LOSARTAN POTASSIUM 25 MG TABLET PO SCH (09:07)
[2020-11-11] MEDS: ENOXAPARIN SODIUM 40 MG/0.4 ML DISP.SYRIN SQ SCH (09:11)
[2020-11-11 09:14] VITALS: BP 132/68
[2020-11-11] MEDS: PROPRANOLOL HCL 40 MG TABLET PO SCH (09:14)
[2020-11-11] MEDS ORDERED: K PHOS NEUTRAL 250 MG TABLET PO ONE (12:00)
--- NOTE | 2020-11-11 13:00 | NUR ---
MS RN NOTE PATIENT SEEN AND EVALUATED BY ERICA MUÑIZ. ANEESH DRAIN ON RIGHT ABDOMEN REMOVED AT BEDSIDE. ERICA MUÑIZ PLACED DRESSING ON THE RIGHT ABDOMEN WITH INSTRUCTIONS TO LEAVE THE DRESSING CLEAN, DRY AND INTACT. INSTRUCTIONS PROVIDED BY ERICA MUIÑZ TO THE PATIENT WELL, PATIENT VERBALIZED UNDERSTANDING. PATIENT TOLERATED WELL.
--- NOTE | 2020-11-11 18:10 | NUR ---
MS DISCHARGE NOTE PATIENT DISCHARGED HOME IN STABLE CONDITION, VITAL SIGNS WNL, ALERT AND ORIENTED X4, NO ACUTE DISTRESS OR SHORTNESS OF BREATH NOTED. DISCHARGE INSTRUCTIONS GIVEN TO PATIENT, INCLUDING FOLLOW UP WITH PRIMARY CARE PROVIDER AND NEW PRESCRIPTIONS. PATIENT VERBALIZED UNDERSTANDING. IV ACCESS REMOVED, NO BLEEDING OR SWELLING NOTED. ABDOMINAL SURGICAL DRESSING CLEAN, DRY AND INTACT, PATIENT REFUSED PHOTO TAKEN. ALL BELONGINGS ACCOUNTED FOR. PATIENT ASSISTED TO THE LOBBY AND PICKED UP BY PRIVATE CAR ACCOMPANIED BY DAUGHTER SONIDO IN STABLE CONDITION.
== END 2020-11-11 18:15 | disposition home or self-care (01) | DRG 263 ==
LOC: ER 15:41 → MED 21:46
PROVIDERS: ADMIT Nurse Practitioner Acute Care; ATTEND Nurse Practitioner Acute Care
PROC: 0FT44ZZ Resection of Gallbladder, Percutaneous Endoscopic Approach (ICD-10-PCS; principal; 2020-11-09)
PROC: 0FB04ZX Excision of Liver, Percutaneous Endoscopic Approach, Diagnostic (ICD-10-PCS; 2020-11-09)
DX: K81.0 Acute cholecystitis (principal); E27.8 Other specified disorders of adrenal gland; K76.0 Fatty (change of) liver, not elsewhere classified; E66.9 Obesity, unspecified; K21.9 Gastro-esophageal reflux disease without esophagitis; E78.5 Hyperlipidemia, unspecified; I10 Essential (primary) hypertension; Z68.38 Body mass index [BMI] 38.0-38.9, adult; K82.8 Other specified diseases of gallbladder; F41.9 Anxiety disorder, unspecified; E78.00 Pure hypercholesterolemia, unspecified; Z79.899 Other long term (current) drug therapy; Z79.82 Long term (current) use of aspirin; R74.01 Elevation of levels of liver transaminase levels; N39.0 Urinary tract infection, site not specified
CPT/HCPCS: 36415; 71045-TC; 76705-TC; 78226; 80048-TC; 80053-TC; 80061-TC; 80076-TC; 81001; 83540-TC; 83605-TC; 83690-TC; 83735-TC; 84100-TC; 84443-TC; 84484-TC; 85025-TC; 87081-TC; 87086-TC; 88304-TC; 88307-TC; 88313-TC; A9537; C9113; C9803; G0378; J0330; J0780; J1650; J2250; J2270; J2370; J2405; J2543; J2704; J2765; J3010; J3475; J3490; J7030; J7050; J7060; Q9966; Q9967